=== PATIENT | female | born 2000 | race Caucasian/White ===

== ENCOUNTER → 2024-02-17 07:01 | Outpatient (REF) | payer OTHER, SELFPAY | LOC: PNTC 07:01 | PROVIDERS: ATTENDING PHYSICIAN Obstetrics & Gynecology | DX: O99.210 Obesity complicating pregnancy, unspecified trimester (principal); O35.5XX0 Maternal care for (suspected) damage to fetus by drugs, not applicable or unspecified | CPT/HCPCS: 76801; 76813 ==

== ENCOUNTER → 2024-03-16 10:40 | Outpatient (REF) | payer OTHER, SELFPAY | LOC: PNTC 10:40 | PROVIDERS: ATTENDING PHYSICIAN Obstetrics & Gynecology | DX: O99.210 Obesity complicating pregnancy, unspecified trimester (principal); O35.5XX0 Maternal care for (suspected) damage to fetus by drugs, not applicable or unspecified | CPT/HCPCS: 76805 ==

== ENCOUNTER 2024-03-30 22:39 | Emergency (ER) | payer OTHER, SELFPAY ==
[2024-03-30 22:41] VITALS: BP 138/87
[2024-03-30 23:23] VITALS: BP 137/79
[2024-03-30 23:32] LABS: % Basophils 0.3 % (0-2); % Eosinophils 1.1 % (0-6); % Immature Granulocytes 0.4 % (0-0.5); % Lymphocytes 13.9 % (20.5-51.1); % Monocytes 3.8 % (1.7-9.3); % Neutrophils 80.5 % (42.2-75.2); Absolute Eosinophils 0.1 10^3/uL (0-0.7); Absolute Lymphocytes 1.4 10^3/uL (1.2-3.4); Absolute Monocytes 0.4 10^3/uL (0.1-0.6); Absolute Neutrophils 8.2 10^3/uL (1.4-6.5); Hematocrit 33.8 % (37.0-47.0); Hemoglobin 11.9 g/dL (12.0-16.0); Mean Corp Hgb Conc. 35.2 g/dL (33.0-37.0); Mean Corpuscular Volume 85.1 fL (81.0-99.0); Nucleated Red Blood Cells % 0 %; Platelet Count 205 10^3/uL (130-400); Red Blood Cell Count 3.97 10^6/uL (4.20-5.40); Red Cell Dist. Width 12.1 % (11.5-14.5); White Blood Cell Count 10.2 10^3/uL (4.8-10.8)
[2024-03-30 23:56] LABS: NT-proBNP 49.3 pg/ml; Troponin I < 0.012 ng/ml
[2024-03-31] VITALS: BP 117/65
[2024-03-31 00:19] LABS: ALT (SGPT) 20 U/L (0-35); AST (SGOT) 23 U/L (14-36); Alkaline Phosphatase 86 U/L (38-126); Blood Urea Nitrogen 10 mg/dl (7-17); Calcium 9.5 mg/dl (8.4-10.2); Carbon Dioxide 22 mmol/L (22-30); Chloride 104 mmol/L (98-107); Glucose 112 mg/dl (70-99); Potassium 3.9 mmol/L (3.5-5.1); Sodium 134 mmol/L (135-145); Total Bilirubin 0.4 mg/dl (0.2-1.3); Total Protein 6.7 g/dl (6.3-8.2); eGFR > 60.00
[2024-03-31 00:31] LABS: HCG, Serum Qualitative Screen Positive
--- NOTE | 2024-03-31 00:34 | EDRN ---
Updated patient on labs and the delay for seeing a provider, understanding to the busy level of department, unhooked to use restroom, otherwise resting conformably, VSS
--- NOTE | 2024-03-31 00:42 | EDRN ---
Provided patient with more water, call oropeza in reach, no further complaints
[2024-03-31 01:06] VITALS: BP 120/73
[2024-03-31] MEDS: PROTONIX IV 40 MG IV (01:43)
--- NOTE | 2024-03-31 01:50 | ED.GENMED ---
History of Present Illness
General
Chief Complaint: Chest Pain
Source: patient
Exam Limitations: none
Time Seen by Provider: 03/31/24 01:23
History of Present Illness
History of Present Illness:
This is a 23 year old female that comes in with c/o mid sternal chest pain. State that she started around 11am yesterday with chest discomfort when she take a deep breath or moves. States that she started about 4-5 weeks ago feeling lightheaded and
dizzy. States that her PLANT GUARD did blood work and this was normal. States that today she called the PCP and was told to come to the ER due to her chest pain. States that she is 18 weeks and 5 days . Denies any fever, chills, SOB, abd pain,
nausea, vomiting, diarrhea, headache, dizziness, urinary burning.
Past History
Past History
ED Past Medical History: Psychiatric (Anxiety, Post Depression)
ED Past Surgical History: None
Social History
Tobacco: Non-smoker
Alcohol: None
Drug: None
Personal:
Living: with family
Employment: Student
Family History
Family History: Other (no ibs)
Review of Systems
Review of Systems
All Other Systems: ROS reviewed and negative except as documented in HPI and ROS
Constitutional: Reports no symptoms; Denies fever or chills
EENT: Reports no symptoms
Respiratory: Denies cough or trouble breathing
Cardiac: Reports chest pain (pain with deep breathing mid sternal)
ABD/GI: Reports no symptoms; Denies abdominal pain, nausea, vomiting or diarrhea
: Reports no symptoms; Denies dysuria, frequency or urgency
Musculoskeletal: Reports no symptoms
Skin: Reports no symptoms
Neurological: Reports no symptoms; Denies dizzy or headache
Psychiatric: Reports no symptoms
Phy Exam
General Physical Exam
General Presentation: well appearing and no apparent distress
General age: appears stated age
General Skin: warm and dry
General Habitus: normal
General Mental: alert
General Hydration: appears well hydrated
ENT Exam
ENT Exam: TM's normal, pharynx normal and neck supple
Eye Exam
Eye Exam: EOMI
Cardiovascular Exam
Cardiovascular Exam: regular rate/rhythm, no edema, no murmur and normal peripheral pulses
Pulmonary Exam
Pulmonary Exam: lungs clear, no respiratory distress, no rales, chest non tender, no crackles, no rhonchi, no wheezing and no cough
Gastrointestinal Exam
Gastrointestinal Exam: normal bowel sounds, non tender, soft, no organomegaly, no pulsatile mass and non distended
Musculoskeletal Exam
Musculoskeletal Exam: full ROM and no edema
Skin Exam
Skin Exam: normal color, warm/dry, no rash and no petechia
Psychiatric Exam
Psychiatric Exam: normal mood/affect
Scores
Heart Score for Chest Pain Patients
STEMI patient?: Not applicable
Course
Orders/Labs/Results
Orders:
Orders
03/30/24 22:49
Electrocardiogram (*1) Urgent
Reason for Study: Other
Other Reason for Exam: Respiratory Distress
EKG- Treatment ONCE
03/30/24 23:12
Complete Blood Count/With Diff Urgent
Comprehensive Metabolic Panel Urgent
HCG, Serum Qualitative Screen Urgent
Comment: ADD ON
NT-proBNP Urgent
Troponin I Urgent
03/30/24 23:46
Test Result ONCE
03/31/24 00:05
Add On- LAB Urgent
Tests Added?: hcg Qualitative
03/31/24 01:36
Pantoprazole [Protonix IV] 40 mg IV NOW STA
03/31/24 01:38
D-Dimer Urgent
Abnormal Lab Results
03/30/24 03/31/24
23:12 01:38
RBC 3.97 L 10^6/uL
(4.20-5.40)
Hgb 11.9 L g/dL
(12.0-16.0)
Hct 33.8 L %
(37.0-47.0)
MPV 11.0 H fL
(7.4-10.4)
Absolute Neuts (auto) 8.2 H 10^3/uL
(1.4-6.5)
Neutrophils % 80.5 H %
(42.2-75.2)
Lymphocytes % 13.9 L %
(20.5-51.1)
D-Dimer 0.54 H ug/mlFEU
(0.00-0.50)
Sodium 134 L mmol/L
(135-145)
Creatinine 0.5 L mg/dL
(0.6-1.0)
Glucose 112 H mg/dl
(70-99)
03/30/24 23:12
03/30/24 23:12
H/H slightly low. Glucose nonfasting. Troponin <0.012, Pro-BNP 49.3, D-dimer 0.54
Vital Signs
Initial and Last Documented VS:
Initial Vital Signs
Temp Pulse Resp BP Pulse Ox
98 F 124 24 138/87 100
03/30/24 22:41 03/30/24 22:41 03/30/24 22:41 03/30/24 22:41 03/30/24 22:41
Last Documented Vital Signs
Temp Pulse Resp BP Pulse Ox
98 F 86 18 103/56 96
03/30/24 22:41 03/31/24 02:30 03/31/24 02:30 03/31/24 02:00 03/31/24 02:30
Inserter Operator consulted with Physician
Inserter Operator consulted with physician?: Yes
Name of Physician Consulted: Dr. Rowland
MDM/Problems Addressed
Differential Diagnosis Includes:
PE, Anxiety, GERD
MDM/Problems Addressed:
This is a 23 year old female that comes in with c/o chest pain with deep breathing. States that she has mid sternal discomfort. States that she is 18 week and 5 days .
Will get labs.
Back into see patient. Explained that the D-dimer came back very slightly elevated. Do not feel that this is due to a PE as patient is not hypoxic or tachycardic. She also has pain with moving. This may be more musculoskeletal in nature. Offered
patient a CT of the chest as explained they have protocol for women who are . Patient would rather hold off. Will give Patient Tylenol. Patient can use TUMS to help with any reflux. Patient to follow up with the PLANT GUARD and the PCP. Patient
to return with increaed pain, SOB, or any other concerns.
Chronic conditions affecting care: Psychiatric illness (Anxiety)
Acute Exacerbation and/or Progression of Chronic Illness: Psychiatric illness (Anxiety)
*Pulse Oximetry
Patient hypoxic: no
*EKG
Interpreted by ED Provider?: Yes
Heart Rate: 104
Rate: tachycardiac
Rhythm: sinus
[place]: normal axis
Interval: normal interval
QRS Pattern: normal QRS
Ischemia: no ischemia
*Contract Engineer Interpretation
Rate: normal
Heart Rate: 94
Rhythm: sinus
*Critical Care Note
Total Time (30-74mins, 75-104mins- exclusive of procedures): Not Applicable
ED Attending Note
-
Portions of this chart may have been created with voice recognition software.� Occasional wrong word or��sound alike� substitutions may have occurred due to the inherent limitations of voice recognition software.
Discharge Plan
Departure
Patient Disposition: Home (Routine Discharge)
Date of Disposition: 03/31/24
Time of Disposition: 02:53
Patient with high blood pressure during this ER visit?: No
Condition: Good
Covid-19: Not Applicable
Discharge Problem:
Chest pain
Instructions: Chest Pain PCP Follow Up
Prescriptions:
No Action
prenat.vits,christian,[id number] Tablet
1 tab PO DAILY
acetaminophen 325 mg Tablet
650 mg PO Q4HPRN PRN (Reason: mild pain) Qty: 0 0RF
sennosides-docusate sodium [Stool Softener-Stimulant Laxat] 8.6-50 mg Tablet
1 tab PO DAILYPRN PRN (Reason: constipation) Qty: 0 0RF
ferrous sulfate [FeroSul] 325 mg (65 mg iron) Tablet
325 mg PO BID Qty: 0 0RF
ibuprofen 600 mg Tablet
400 mg PO Q4HPRN PRN (Reason: moderate pain/cramps) Qty: 0 0RF
Referrals:
Leticia Longoria MD [Family Provider] - Follow up in 2-3 days
Activity Restrictions/Additional Instructions:
As discussed, your blood work is normal. Your Troponin which is for the heart is normal and the D-dimer is every so slightly elevated but this would go along with . Your Oxygen level is normal and your heart rate is not fast. The fact that
you have discomfort with movement suggest Musculoskeletal in nature. You may use Tylenol 1000mg every 6 hours for pain. TUMS to help with any reflux. Follow up with the family doctor and the PLANT GUARD for recheck. IF YOU HAVE INCREASED PAIN, SHORTNESS
OF BREATH OR YOU HAVE ANY OTHER CONCERNS PLEASE RETURN TO THE EMERGENCY ROOM.
Interventions
Interventions:
*Risk Screen - Suicide Last Done: 03/30/24 22:41
*General Assessment Last Done: 03/30/24 23:11
*Neglect/Abuse Screening Last Done: 03/30/24 23:11
ED- Fall Risk Assessment Last Done: 03/30/24 23:28
ED- Cardiac Assessment Last Done: 03/30/24 23:28
Discharge Date and Time
Print Language: GUYANESE
[2024-03-31 01:54] VITALS: BP 111/57
[2024-03-31 02:00] VITALS: BP 103/56
[2024-03-31 02:08] LABS: D-Dimer 0.54 ug/mlFEU (0.00-0.50)
--- NOTE | 2024-03-31 02:45 | EDRN ---
IRENE Zheng in to speak with patient about d-dimer results, decision to not do a CT scan and patient to be discharged home.
[2024-03-31] MEDS: TYLENOL 1000 MG PO (03:08)
== END 2024-03-31 03:25 | disposition home or self-care (01) ==
LOC: EMR 22:39
PROVIDERS: Clinical Nurse Specialist Family Health; EMERGENCY PHYSICIAN Student in an Organized Health Care Education/Training Program; FAMILY PHYSICIAN Family Medicine
DX: O99.891 Other specified diseases and conditions complicating pregnancy (principal); R07.89 Other chest pain; F41.9 Anxiety disorder, unspecified; Z3A.18 18 weeks gestation of pregnancy
CPT/HCPCS: 99283; 96374; 80053; 83880; 84484; 84703; 85025; 85379; 93005

== ENCOUNTER → 2024-04-09 07:31 | Outpatient (REF) | payer OTHER, SELFPAY | LOC: PNTC 07:31 | PROVIDERS: ATTENDING PHYSICIAN Obstetrics & Gynecology | DX: O99.210 Obesity complicating pregnancy, unspecified trimester (principal); O99.320 Drug use complicating pregnancy, unspecified trimester | CPT/HCPCS: 76811 ==

== ENCOUNTER → 2024-05-25 07:30 | Outpatient (REF) | payer OTHER, SELFPAY | LOC: PNTC 07:30 | PROVIDERS: ATTENDING PHYSICIAN Obstetrics & Gynecology | DX: O99.210 Obesity complicating pregnancy, unspecified trimester (principal); O35.5XX0 Maternal care for (suspected) damage to fetus by drugs, not applicable or unspecified | CPT/HCPCS: 76816 ==

== ENCOUNTER → 2024-07-06 07:37 | Outpatient (REF) | payer OTHER, SELFPAY | LOC: PNTC 07:37 | PROVIDERS: ATTENDING PHYSICIAN Obstetrics & Gynecology | DX: O99.210 Obesity complicating pregnancy, unspecified trimester (principal); O99.320 Drug use complicating pregnancy, unspecified trimester | CPT/HCPCS: 76816 ==

== ENCOUNTER 2024-08-22 23:32 | Inpatient (IN) | payer OTHER, SELFPAY ==
[2024-08-23] MEDS: PENICILLIN 110 UNITS IV (00:30)
[2024-08-23] MEDS: LR 1000 IV ×2 (00:35→03:15)
[2024-08-23 00:43] LABS: Protein/creatinine Ratio 0.5; Urine Protein 14 mg/dl
[2024-08-23 00:48] LABS: % Basophils 0.4 % (0-2); % Eosinophils 0.8 % (0-6); % Immature Granulocytes 0.6 % (0-0.5); % Lymphocytes 19.4 % (20.5-51.1); % Monocytes 5.6 % (1.7-9.3); % Neutrophils 73.2 % (42.2-75.2); ALT (SGPT) 20 U/L (0-35); AST (SGOT) 25 U/L (14-36); Absolute Basophils 0.1 10^3/uL (0-0.2); Absolute Eosinophils 0.1 10^3/uL (0-0.7); Absolute Immature Granulocytes 0.1 10^3/uL (0-0.05); Absolute Lymphocytes 3.1 10^3/uL (1.2-3.4); Absolute Monocytes 0.9 10^3/uL (0.1-0.6); Absolute Neutrophils 11.8 10^3/uL (1.4-6.5); Albumin 4.2 g/dl (3.5-5.0); Alkaline Phosphatase 133 U/L (38-126); Blood Urea Nitrogen 12 mg/dl (7-17); Calcium 10.2 mg/dl (8.4-10.2); Carbon Dioxide 19 mmol/L (22-30); Chloride 108 mmol/L (98-107); Glucose 96 mg/dl (70-99); Hematocrit 36.1 % (37.0-47.0); Hemoglobin 12.1 g/dL (12.0-16.0); Mean Corp Hgb Conc. 33.5 g/dL (33.0-37.0); Mean Corpuscular Hgb 28.9 pg (27.0-31.0); Mean Corpuscular Volume 86.4 fL (81.0-99.0); Mean Platelet Volume 12.3 fL (7.4-10.4); Nucleated Red Blood Cells % 0 %; Platelet Count 230 10^3/uL (130-400); Potassium 4.1 mmol/L (3.5-5.1); Red Blood Cell Count 4.18 10^6/uL (4.20-5.40); Sodium 138 mmol/L (135-145); Total Bilirubin 0.3 mg/dl (0.2-1.3); Total Protein 7.4 g/dl (6.3-8.2); White Blood Cell Count 16.1 10^3/uL (4.8-10.8); eGFR > 60.00
[2024-08-23 00:51] VITALS: BP 139/93; BMI 36.4
[2024-08-23] MEDS: SUBLIMAZE 100 MCG EPIDURAL (02:53)
[2024-08-23] MEDS: FENTANYL/BUPIVACAINE 100 EPIDURAL (03:20)
[2024-08-23] MEDS: PENICILLIN 55 UNITS IV (04:38)
[2024-08-23] MEDS: MOTRIN 600 MG PO ×2 (11:11→18:43)
[2024-08-23] MEDS: PRENATAL PLUS 1 TABLET PO (11:13)
[2024-08-23] MEDS: TYLENOL 650 MG PO (21:05)
[2024-08-24] MEDS: MOTRIN 600 MG PO ×3 (03:49→20:25)
[2024-08-24 04:56] LABS: Hematocrit 30.7 % (37.0-47.0); Hemoglobin 10.6 g/dL (12.0-16.0)
[2024-08-24] MEDS: SENOKOT-S 1 TABLET PO (08:18)
[2024-08-24] MEDS: PRENATAL PLUS 1 TABLET PO (08:18)
[2024-08-25 11:40] LABS: Syphilis/T. pallidum Ab Reflex Negative (Negative)
[2024-08-25] MEDS: MOTRIN 600 MG PO (12:49)
[2024-08-25] MEDS: PRENATAL PLUS PO (12:49)
== END 2024-08-25 14:55 | disposition home or self-care (01) | DRG 807 ==
LOC: LDRP 23:32
PROVIDERS: Student in an Organized Health Care Education/Training Program; ADMITTING PHYSICIAN Obstetrics & Gynecology; REFERRING PHYSICIAN Obstetrics & Gynecology
PROC: 10E0XZZ Delivery of Products of Conception, External Approach (ICD-10-PCS; 2024-08-23)
PROC: 0HQ9XZZ Repair Perineum Skin, External Approach (ICD-10-PCS; 2024-08-23)
DX: O99.824 Streptococcus B carrier state complicating childbirth (principal); Z37.0 Single live birth; Z3A.39 39 weeks gestation of pregnancy; Z68.31 Body mass index [BMI] 31.0-31.9, adult; O99.214 Obesity complicating childbirth; E66.9 Obesity, unspecified; F41.9 Anxiety disorder, unspecified; O99.344 Other mental disorders complicating childbirth; O70.0 First degree perineal laceration during delivery; O14.04 Mild to moderate pre-eclampsia, complicating childbirth
CPT/HCPCS: 36415; 80053; 82570; 84156; 85014; 85018; 85025; 86780; 86850; 86900; 86901; 87086

== ENCOUNTER 2024-08-27 14:13 | Inpatient (IN) | payer OTHER, SELFPAY ==
[2024-08-27 14:16] VITALS: BMI 33.4
[2024-08-27 14:46] VITALS: BP 147/97
[2024-08-27 14:54] LABS: % Basophils 0.8 % (0-2); % Eosinophils 3.9 % (0-6); % Immature Granulocytes 0.7 % (0-0.5); % Lymphocytes 23.5 % (20.5-51.1); % Monocytes 4.1 % (1.7-9.3); Absolute Basophils 0.1 10^3/uL (0-0.2); Absolute Eosinophils 0.5 10^3/uL (0-0.7); Absolute Immature Granulocytes 0.1 10^3/uL (0-0.05); Absolute Lymphocytes 3.1 10^3/uL (1.2-3.4); Absolute Monocytes 0.5 10^3/uL (0.1-0.6); Absolute Neutrophils 8.8 10^3/uL (1.4-6.5); Hematocrit 37.7 % (37.0-47.0); Hemoglobin 12.7 g/dL (12.0-16.0); Mean Corp Hgb Conc. 33.7 g/dL (33.0-37.0); Mean Corpuscular Hgb 29.6 pg (27.0-31.0); Mean Corpuscular Volume 87.9 fL (81.0-99.0); Mean Platelet Volume 11.3 fL (7.4-10.4); Nucleated Red Blood Cells % 0 %; Platelet Count 295 10^3/uL (130-400); Red Blood Cell Count 4.29 10^6/uL (4.20-5.40); Red Cell Dist. Width 13.2 % (11.5-14.5); White Blood Cell Count 13.1 10^3/uL (4.8-10.8)
[2024-08-27 15:07] LABS: Urine Albumin Negative (Neg - Trace); Urine Bilirubin Negative (Negative); Urine Character Clear (Clear); Urine Color Yellow; Urine Glucose Negative (Negative); Urine Ketone Negative (Negative); Urine Leukocyte Trace (Negative); Urine Nitrite Negative (Negative); Urine Occult Blood 4+ (Negative); Urine Urobilinogen Negative (Neg - 1+)
[2024-08-27 15:08] LABS: ALT (SGPT) 37 U/L (0-35); AST (SGOT) 40 U/L (14-36); Albumin 4.5 g/dl (3.5-5.0); Alkaline Phosphatase 118 U/L (38-126); Blood Urea Nitrogen 15 mg/dl (7-17); Calcium 10.4 mg/dl (8.4-10.2); Carbon Dioxide 22 mmol/L (22-30); Chloride 107 mmol/L (98-107); Estimated Creatinine Clearance > 125 ml/min; Glucose 74 mg/dl (70-99); Potassium 4.3 mmol/L (3.5-5.1); Sodium 141 mmol/L (135-145); Total Bilirubin 0.4 mg/dl (0.2-1.3); Total Protein 7.6 g/dl (6.3-8.2); Uric Acid 6.7 mg/dl (2.5-6.2); eGFR > 60.00
[2024-08-27 15:13] LABS: Urine Squamous Cell 16-20 /LPF (Few)
[2024-08-27 15:14] LABS: Urine Red Blood Cell 16-20 /HPF (0-2)
[2024-08-27 15:15] LABS: Urine Bacteria Few (Negative)
[2024-08-27] MEDS: TYLENOL 1000 MG PO (15:25)
[2024-08-27 15:43] LABS: Protein/creatinine Ratio 0.2; Urine Protein 14 mg/dl
[2024-08-27] MEDS: LR 1000 IV (17:11)
[2024-08-27] MEDS: MAGNESIUM SULFATE 100 IV (17:34)
[2024-08-27] MEDS: MAGNESIUM SULFATE 40 GRAM 1000 IV (17:54)
[2024-08-27] MEDS: MOTRIN 600 MG PO (20:35)
[2024-08-27] MEDS: REGLAN 10 MG IV (22:15)
[2024-08-28 01:01] LABS: Magnesium 5.2 mg/dl (1.6-2.3)
[2024-08-28] MEDS: LR 1000 IV (05:43)
[2024-08-28] MEDS: MOTRIN 600 MG PO ×2 (05:44→13:19)
[2024-08-28 06:21] LABS: Hematocrit 36.4 % (37.0-47.0); Mean Corpuscular Hgb 29.2 pg (27.0-31.0); Mean Corpuscular Volume 88.6 fL (81.0-99.0); Mean Platelet Volume 10.9 fL (7.4-10.4); Platelet Count 250 10^3/uL (130-400); Red Blood Cell Count 4.11 10^6/uL (4.20-5.40); Red Cell Dist. Width 13.2 % (11.5-14.5); White Blood Cell Count 10.2 10^3/uL (4.8-10.8)
[2024-08-28 06:34] LABS: ALT (SGPT) 34 U/L (0-35); AST (SGOT) 32 U/L (14-36); Albumin 4.2 g/dl (3.5-5.0); Alkaline Phosphatase 118 U/L (38-126); Blood Urea Nitrogen 13 mg/dl (7-17); Calcium 7.8 mg/dl (8.4-10.2); Carbon Dioxide 25 mmol/L (22-30); Chloride 103 mmol/L (98-107); Estimated Creatinine Clearance > 125 ml/min; Glucose 91 mg/dl (70-99); Potassium 4.1 mmol/L (3.5-5.1); Sodium 140 mmol/L (135-145); Total Bilirubin 0.4 mg/dl (0.2-1.3); Total Protein 7.2 g/dl (6.3-8.2); eGFR > 60.00
[2024-08-28] MEDS: MAGNESIUM SULFATE 40 GRAM 1000 IV (12:10)
[2024-08-28] MEDS: LR IV (19:45)
--- NOTE | 2024-08-31 11:29 | W.DS.TRANS ---
DC Summary - Accordion Tuner
-
Discharge Instructions:
Discharge Diagnosis/Procedures PEC with SF 08/23
Instructions:
Stand-Alone Forms: LDRP Hypertensive Disorders
Changes to Home Medications: No
Discharge Medications:
DC Medications w/original date entered in [facility]
prenat.vits,christian,[id number]-[id number] 1 tab PO DAILY Supplement 07/14/23
Home Medication Changes
Pending Results: No
Total time spent discharging patient (in min): 20
== END 2024-08-29 11:24 | disposition home or self-care (01) | DRG 776 ==
LOC: LDRP 14:13
PROVIDERS: Student in an Organized Health Care Education/Training Program; ADMITTING PHYSICIAN Obstetrics & Gynecology
DX: O14.15 Severe pre-eclampsia, complicating the puerperium (principal); R51.9 Headache, unspecified; F41.9 Anxiety disorder, unspecified; H53.8 Other visual disturbances
CPT/HCPCS: 80053; 81003; 81015; 82570; 83735; 84156; 84550; 85025; 85027; 86850; 86900; 86901